=== PATIENT | female | born 2000 | race Caucasian/White ===

== ENCOUNTER 2021-01-04 11:08 | Emergency (ER) | payer OTHER ==
[~2021-01-04] VITALS: Ht 157.5 cm; Wt 82.6 kg
== END 2021-01-04 15:56 | disposition home or self-care (01) ==
LOC: ER 11:08
DX: O21.0 Mild hyperemesis gravidarum (principal); Z34.01 Encounter for supervision of normal first pregnancy, first trimester

== ENCOUNTER 2021-07-17 06:29 | Inpatient (IN) | payer OTHER ==
[~2021-07-17] VITALS: Ht 157.5 cm; Wt 92.5 kg
[2021-07-17] MEDS ORDERED: PRENATAL TABLE1 EAC1 PO (08:11)
== END 2021-07-19 15:53 | disposition home or self-care (01) | DRG 807 ==
LOC: OB/GYN 06:29 → LDR 06:29 → OB/GYN 15:49
PROVIDERS: ADMIT Obstetrics & Gynecology; ATTEND Obstetrics & Gynecology
PROC: 10E0XZZ Delivery of Products of Conception, External Approach (ICD-10-PCS; principal; 2021-07-17)
PROC: 10907ZC Drainage of Amniotic Fluid, Therapeutic from Products of Conception, Via Natural or Artificial Opening (ICD-10-PCS; 2021-07-17)
PROC: 3E033VJ Introduction of Other Hormone into Peripheral Vein, Percutaneous Approach (ICD-10-PCS; 2021-07-17)
PROC: 4A1HXFZ Monitoring of Products of Conception, Cardiac Rhythm, External Approach (ICD-10-PCS; 2021-07-17)
DX: O80 Encounter for full-term uncomplicated delivery (principal); Z37.0 Single live birth; Z3A.39 39 weeks gestation of pregnancy